=== PATIENT | male | born 1955 | race African-American/Black ===

== ENCOUNTER 2017-04-14 12:59 | Emergency (ER) | payer BC, OTHER ==
--- NOTE | 2017-04-14 14:56 | RADIOLOGY REPORT (SQ) ---
EXAM DESCRIPTION: FOOT RIGHT COMPLETE COMPLETED DATE/TIME: 04/14/2017 2:18 pm REASON FOR STUDY: injury, pain COMPARISON: None. NUMBER OF VIEWS: Three views. TECHNIQUE: AP, lateral and oblique radiographic images acquired of the right foot. LIMITATIONS: None. FINDINGS: MINERALIZATION: Normal. BONES: No acute fracture or dislocation. No worrisome bone lesions. JOINTS: No effusions. SOFT TISSUES: No soft tissue swelling. No foreign body. OTHER: No other significant finding. IMPRESSION: NEGATIVE STUDY OF THE RIGHT FOOT. NO RADIOGRAPHIC EVIDENCE OF ACUTE INJURY. TECHNICAL DOCUMENTATION: JOB ID: [id number] [employer]- All Rights Reserved
--- NOTE | 2017-04-14 14:59 | RADIOLOGY REPORT (SQ) ---
EXAM DESCRIPTION: ANKLE RIGHT COMPLETE COMPLETED DATE/TIME: 04/14/2017 2:18 pm REASON FOR STUDY: injury, pain COMPARISON: None. NUMBER OF VIEWS: Three views. TECHNIQUE: AP, lateral, and oblique radiographic images acquired of the right ankle. LIMITATIONS: None. FINDINGS: MINERALIZATION: Normal. BONES: No acute fracture or dislocation. No worrisome bone lesions. JOINTS: No effusions. SOFT TISSUES: No soft tissue swelling. No foreign body. OTHER: No other significant finding. IMPRESSION: NEGATIVE STUDY OF THE RIGHT ANKLE. NO RADIOGRAPHIC EVIDENCE OF ACUTE INJURY. TECHNICAL DOCUMENTATION: JOB ID: [id number] [employer]- All Rights Reserved
[2017-04-14] MEDS ORDERED: IBUPROFEN 800 MG TABLET PO ONE (15:30)
--- NOTE | 2017-04-14 15:30 | ER Document Report ---
ED Extremity Problem, Lower - General Chief Complaint: Foot Injury Stated Complaint: FOOT PAIN Time Seen by Provider: 04/14/17 14:04 Mode of Arrival: Ambulatory Information source: Patient Notes: Patient is a 61-year-old black male comes to the emergency room complaint right foot pain. 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 He states that his trouble started about 2 months ago during gi when he drove round-trip 1600 miles from here to [place] and back. And he performed a resilient sciatica. This seem to be affecting mostly his right side and over the course of time it is gotten better with him stretching and kind of working out. Patient states that he in order to be able to function during the day has to get up and do some stretching on his right side literally pulling his knee to his chest while he is standing and stretching. Patient states this morning he was doing this he was standing on one foot his left side he brought his right knee and ankle up and was holding his leg by the ankle he lost his balance and fell to his left landing on his left side. When he went to get up he felt a little twinge in his right ankle did not think much about it. He proceeded to come to work and for the first 3 hours he had no difficulty at all. After the third hour he started feeling some very increased amount of pain in his right foot. It is always on the right lateral side and eventually by that fourth hour and his last time he was limping. When he went to get up after eating lunch he could not bear weight on the foot and leg at all. He was wheeled to the emergency room. Patient acknowledges that it is weird that he fell on his left side and has pain on his right ankle but he cannot explain it. TRAVEL OUTSIDE OF THE [place] IN LAST 30 DAYS: No - HPI Patient complains to provider of: Injury Location: Ankle Occurred: This morning Where: Home Onset/Duration: Sudden Quality of pain: Sharp, Stabbing Severity: Moderate Pain Level: 3 Context: Barefoot Recent injury: Yes Associated symptoms: Unable to bear weight Exacerbated by: Movement, Walking Relieved by: Rest - Related Data Allergies/Adverse Reactions: No Known Allergies Allergy (Verified 01/16/14 07:44) Past Medical History - General Information source: Patient - Social History Smoking Status: Never Smoker Cigarette use (# per day): No Chew tobacco use (# tins/day): No Smoking Education Provided: No Frequency of alcohol use: None Drug Abuse: None Family History: Reviewed & Not Pertinent Patient has suicidal ideation: No Patient has homicidal ideation: No - Past Medical History Cardiac Medical History: Denies: Hx Coronary Artery Disease, Hx Heart Attack, Hx Hypertension Pulmonary Medical History: Denies: Hx Asthma, Hx Bronchitis, Hx COPD, Hx Pneumonia Neurological Medical History: Denies: Hx Cerebrovascular Accident, Hx Seizures Renal/ Medical History: Denies: Hx Peritoneal Dialysis Musculoskeltal Medical History: Denies Hx Arthritis - Immunizations Hx Diphtheria, Pertussis, Tetanus Vaccination: Yes Hx Pneumococcal Vaccination: 04/17/13 Review of Systems - Review of Systems Constitutional: No symptoms reported EENT: No symptoms reported Cardiovascular: No symptoms reported Respiratory: No symptoms reported Gastrointestinal: No symptoms reported Genitourinary: No symptoms reported Male Genitourinary: No symptoms reported Musculoskeletal: Joint pain, Joint swelling, Ankle swelling Skin: No symptoms reported Hematologic/Lymphatic: No symptoms reported Neurological/Psychological: No symptoms reported -: Yes All other systems reviewed and negative Physical Exam - Vital signs Vitals: Temp Pulse Resp BP Pulse Ox 97.4 F 78 18 157/88 H 98 04/14/17 13:07 04/14/17 13:07 04/14/17 13:07 04/14/17 13:07 04/14/17 13:07 Interpretation: Hypertensive - General General appearance: Alert, Other - Uncomfortable appearing - Respiratory Respiratory status: No respiratory distress Chest status: Nontender Breath sounds: Normal - Cardiovascular Rhythm: Regular Heart sounds: Normal auscultation Murmur: No - Back Back: Normal. No: Nontender, Tender, Deformity/step-off, CVA tenderness, Vertebra tenderness, Scars, Scoliosis, Wounds, Other - Extremities General upper extremity: Normal inspection, Normal ROM General lower extremity: Tender, Edema, Normal temperature. No: Normal inspection, Nontender, Normal color, Normal ROM, Normal strength, Normal weight bearing, Juliette's sign, Other Ankle: Tender, Edema, Limited ROM, Unable to bear weight, Other - Examination patient's right ankle shows just minimal swelling and edema. Most of the tenderness is point tender between the end of the fibula and the calcaneus. Point specific in the area but radiates down the lateral side of the foot. She can flex and extend his toes but has increased amount of pain with flexion and extension of the ankle itself. Patient has decreased strength with and against any resistance. He displays good cap refill in the nailbeds of the right foot he also displays good dorsalis pedal pulse as well as posterior tibials. Foot: Normal - Skin Skin Temperature: Warm Skin Moisture: Dry Skin Color: Normal, [place] Course - Vital Signs Vital signs: Temp Pulse Resp BP Pulse Ox 98.0 F 82 18 148/72 H 99 04/14/17 15:43 04/14/17 15:43 04/14/17 15:43 04/14/17 15:43 04/14/17 15:43 - Diagnostic Test Radiology reviewed: Reports reviewed - Original x-rays were read as negative. However there was an area on the lateral view of the both the ankle and foot that showed what I felt was a osteophyte out of fracture in it. I contacted Dr. Walter along the radiologist and discussed it with her she informed me that that was a very good possibility especially if that is what patient's pain was at. This is an area that is often because of pain because it is often an area of an osteophyte or a "bone spur. She was going to make a change in the chart. - Transfer of Care Notes: 04/15/17 01:48 I informed patient that he does have a fracture on the area between the end of the tibia and the calcaneus there is an osteophyte that does appear fractured and that was confirmed by the radiologist when I talked to her. We will put him in an Ruben wrap and crutches nonweightbearing. I have given him the name of Dr. Black for follow-up. I have asked him to be nonweightbearing for 3 days and after 3 days attempt to walk on it if still painful he will need to see the orthopedist. He acknowledged understanding of this and will follow up. Discharge - Discharge Clinical Impression: Fracture Osteophyte of foot Qualifiers: Laterality: right Qualified Code(s): M25.774 - Osteophyte, right foot Condition: Good Disposition: HOME, SELF-CARE Instructions: Foot Fracture ([facility]) Additional Instructions: Nonweightbearing for 3 days. Use the Ruben wrap only when up and ambulatory. Do not sleep with the Ruben wrap on. Ice to the area 3 times a day. After 3 days attempt to walk without the crutches if still painful he will need to follow-up with orthopedist. I have given you the name of the orthopedic [facility] today he may contact her office to see if they can accommodate you. Should you have any concerns or problems return to ER for recheck. Prescriptions: Ibuprofen 800 mg PO TID #30 tablet Referrals: CINTHIA BLACK MD [ACTIVE STAFF] - Follow up as needed
[2017-04-14 15:43] VITALS: BP 148/72
== END 2017-04-14 15:44 | disposition home or self-care (01) ==
LOC: ER 12:59
DX: T14.8XXA Other injury of unspecified body region, initial encounter (principal); X58.XXXA Exposure to other specified factors, initial encounter; M25.774 Osteophyte, right foot; M79.671 Pain in right foot; M25.471 Effusion, right ankle
CPT/HCPCS: 99283

== ENCOUNTER → 2018-01-31 | Outpatient (CLI) | payer BC, OTHER ==
[2018-01-31 07:45] LABS: ABSOLUTE LYMPHOCYTES (AUTO) 1.5 10^3/uL (0.5-4.7); ABSOLUTE MONOCYTES (AUTO) 0.4 10^3/uL (0.1-1.4); ABSOLUTE NEUT (AUTO) 2.7 10^3/uL (1.7-8.2); BASOPHILS % (AUTO) 0.4 % (0-2); HEMOGLOBIN 13.9 g/dL (13.5-17.0); LYMPHOCYTES % (AUTO) 33.1 % (13-45); MEAN CORPUSCULAR HEMOGLOBIN 30.7 pg (27.0-33.4); MEAN CORPUSCULAR HGB CONC 34.6 g/dL (32.0-36.0); MEAN CORPUSCULAR VOLUME 89 fl (80-97); MONOCYTES % (AUTO) 7.6 % (3-13); PLATELET COUNT 180 10^3/uL (150-450); RED BLOOD COUNT 4.51 10^6/uL (4.35-5.55); RED CELL DISTRIBUTION WIDTH 13.3 % (11.5-14.0); SEGMENTED NEUTROPHILS % (AUTO) 57.9 % (42-78); TOTAL CELLS COUNTED % (AUTO) 100 %; WHITE BLOOD COUNT 4.6 10^3/uL (4.0-10.5)
[2018-01-31 08:49] LABS: ALANINE AMINOTRANSFERASE 40 U/L (21-72); ALBUMIN 4.1 g/dL (3.5-5.0); ALKALINE PHOSPHATASE 65 U/L (38-126); ANION GAP 8 (5-19); ASPARTATE AMINO TRANSFERASE 32 U/L (17-59); BILIRUBIN,DIRECT 0.2 mg/dL (0.0-0.4); BILIRUBIN,TOTAL 0.9 mg/dL (0.2-1.3); BLOOD UREA NITROGEN 17 mg/dL (7-20); CALCIUM 9.8 mg/dL (8.4-10.2); CARBON DIOXIDE 25 mmol/L (22-30); CHLORIDE 109 mmol/L (98-107); GLUCOSE 103 mg/dL (75-110); POTASSIUM 4.2 mmol/L (3.6-5.0); SODIUM 141.7 mmol/L (137-145); TOTAL PROTEIN 6.7 g/dL (6.3-8.2)
[2018-01-31 11:32] LABS: CHOLESTEROL 212.36 mg/dL (0-200)
== END ==
LOC: LAB 07:13
PROVIDERS: ATTEND Internal Medicine
DX: R03.0 Elevated blood-pressure reading, without diagnosis of hypertension (principal); R53.81 Other malaise; Z12.5 Encounter for screening for malignant neoplasm of prostate
CPT/HCPCS: 36415; 80053; 82465; 83718; 84153; 84478; 85025

== ENCOUNTER 2018-02-13 11:26 | Day surgery (SDC) | payer BC, OTHER ==
[2018-02-13] MEDS ORDERED: ONDANSETRON HCL INJ/PF 4 MG/2 ML SDV ONE (11:59)
[2018-02-13] MEDS ORDERED: NALOXONE HCL INJ/PF 0.4 MG/1 ML SDV ONE (12:00)
[2018-02-13] MEDS ORDERED: FLUMAZENIL INJ 0.5 MG/5 ML VIAL ONE (12:00)
[2018-02-13] MEDS ORDERED: GLUCAGON,HUMAN RECOMB 1 MG INJ ONE (12:01)
[2018-02-13] MEDS ORDERED: EPINEPHRINE INJ 1 MG/10 ML DISP.SYRIN ONE (12:01)
[2018-02-13] MEDS: MIDAZOLAM 2 MG/2 ML INJ ONE ×2 (12:25→12:29)
[2018-02-13] MEDS: FENTANYL CITRATE INJ/PF 100 MCG/2 ML AMPUL ONE ×2 (12:27→12:31)
--- NOTE | 2018-02-13 13:03 | Operative Report ---
Operative Report DATE OF SURGERY: 02/13/18 Operative Report: The risks, benefits and alternatives of the procedure including the risk of bleeding, perforation requiring surgery are explained to the patient in detail and informed consent is obtained. The patient is placed in a left, lateral decubital position. Timeout was called. Conscious sedation medication is provided. A rectal examination is done which did not reveal any masses, tears or fissures. An Olympus videoscope was introduced into the patient's rectum. The scope was then carefully advanced all the way to the cecum. Cecum was identified by the usual anatomical landmarks including the ileocecal valve as well as the appendiceal office. Photodocumentation is obtained the scope was then sequentially pulled back via the rest segments of the colon including the ascending colon, hepatic flexure, transverse colon, splenic flexure, descending colon and finding to the rectosigmoid portions of the colon. Retroflexion maneuvers performed. PREOPERATIVE DIAGNOSIS: Personal history of polyp POSTOPERATIVE DIAGNOSIS: Small polyp at hepatic flexure removed via biopsy forceps. Mild diverticulosis OPERATION: Colonoscopy with biopsy SURGEON: TREASURE WOO ANESTHESIA: Moderate Sedation - 3 mg of Versed, 75 mcg of fentanyl. Conscious sedation monitoring time 30 minutes. TISSUE REMOVED OR ALTERED: As noted above. COMPLICATIONS: None. ESTIMATED BLOOD LOSS: None. INTRAOPERATIVE FINDINGS: As noted above. PROCEDURE: Patient tolerated the procedure well. No immediate postprocedure complications are noted. Patient discharged in good condition. Discharge date 02/13/2018. Discharge diet: Regular. Discharge activity: Regular. 2-3-week follow-up to discuss findings. Patient is instructed call the office or proceed to the emergency room should there be any further problems or questions. Wait on the pathology. Likely 5-year surveillance colonoscopy.
[2018-02-13 13:45] VITALS: BP 137/89
== END 2018-02-13 13:45 | disposition home or self-care (01) ==
LOC: END 11:26
PROVIDERS: ATTEND Internal Medicine Gastroenterology
DX: Z12.11 Encounter for screening for malignant neoplasm of colon (principal); K57.30 Diverticulosis of large intestine without perforation or abscess without bleeding; D12.6 Benign neoplasm of colon, unspecified; Z86.010 Personal history of colon polyps; G47.33 Obstructive sleep apnea (adult) (pediatric)
CPT/HCPCS: 45380; 88305 ×2; J2250; J3010; J0171; J1610; J2310; J2405; J3490